=== PATIENT | male | born 1980 | race Caucasian/White ===

== ENCOUNTER 2017-10-21 09:52 | Emergency (ER) | payer OTHER ==
[2017-10-21 09:54] VITALS: BP 123/78; PULSE 88; RESP 20; TEMP 98.6
--- NOTE | 2017-10-21 10:28 | ED ---
ENT HPI - General Chief complaint: ENT Stated complaint: Ear Infection Time Seen by Provider: 10/21/17 10:10 Source: patient, RN notes reviewed Mode of arrival: ambulatory Limitations: no limitations - History of Present Illness Initial comments: This is a 36-year-old male with a history of ear infections in the past status post ear tubes as a child who states he's had pain and drainage from his left ear for the past 12 days. He states he working a lot and cannot seek attention. He denies any overt fevers chills or sweats he does complain of the above pain and discharge however. The right ear is fine he denies any rhinorrhea sore throat cough or phlegm production he does state he has required antifungal drops also in the past. MD complaint: ear pain - Related Data Previous Rx's Medication Instructions Recorded Amoxicillin/Potassium Clav 1 tab PO Q12HR #20 tab 10/21/17 [Augmentin 875-125 Tablet] Ciprofloxacin-Dexameth [Ciprodex 4 drops LEFT EAR BID 7 Days #3 ml 10/21/17 Otic Susp] Allergies Allergy/AdvReac Type Severity Reaction Status Date / Time No Known Allergies Allergy Verified 10/21/17 09:54 Review of Systems ROS Statement: Those systems with pertinent positive or pertinent negative responses have been documented in the HPI. ROS Other: All systems not noted in ROS Statement are negative. Past Medical History Past Medical History: No Reported History History of Any Multi-Drug Resistant Organisms: None Reported Past Surgical History: No Surgical Hx Reported Past Psychological History: No Psychological Hx Reported Smoking Status: Current every day smoker Past Alcohol Use History: None Reported Past Drug Use History: None Reported General Exam - General Exam Comments Initial Comments: This is a well-developed well-nourished awake alert oriented times 3 male Limitations: no limitations General appearance: alert, in no apparent distress Head exam: Present: atraumatic, normocephalic, normal inspection Eye exam: Present: normal appearance, PERRL, EOMI. Absent: scleral icterus, conjunctival injection, periorbital swelling ENT exam: Present: normal oropharynx, mucous membranes moist, other (The right TM is within normal limits. Ear canals clear the left side reveals some exudate in the canal with hyperemic tympanic membrane. No definite perforation is seen) Neck exam: Present: normal inspection, full ROM. Absent: tenderness, meningismus, lymphadenopathy Respiratory exam: Present: normal lung sounds bilaterally. Absent: respiratory distress, wheezes, rales, rhonchi, stridor Cardiovascular Exam: Present: regular rate, normal rhythm, normal heart sounds. Absent: systolic murmur, diastolic murmur, rubs, gallop, clicks Extremities exam: Present: normal inspection, full ROM, normal capillary refill. Absent: tenderness, pedal edema, joint swelling, calf tenderness Back exam: Present: full ROM Neurological exam: Present: alert, oriented X3, CN II-XII intact Psychiatric exam: Present: normal affect, normal mood Skin exam: Present: warm, dry, intact, normal color. Absent: rash Course Vital Signs 10/21/17 09:53 Temperature 98.6 F Pulse Rate 88 Respiratory 20 Rate Blood Pressure 123/78 O2 Sat by Pulse 98 Oximetry Medical Decision Making - Medical Decision Making No further workup is indicated essentially she'll be discharged on appropriate medications. The presentation is consistent with otitis media as well as externa. Disposition Clinical Impression: Otitis externa, Otitis media Disposition: HOME SELF-CARE Condition: Good Instructions: Earache (ED), Otitis Externa (ED), Otitis Media (ED) Prescriptions: Amoxicillin/Potassium Clav [Augmentin 875-125 Tablet] 1 tab PO Q12HR #20 tab Ciprofloxacin-Dexameth [Ciprodex Otic Susp] 4 drops LEFT EAR BID 7 Days #3 ml Is patient prescribed a controlled substance at d/c from ED?: No Referrals: None,Stated [Primary Care Provider] - 1-2 days
== END 2017-10-21 10:36 | disposition home or self-care (01) ==
LOC: EC 09:52
DX: H66.92 Otitis media, unspecified, left ear (principal); H60.92 Unspecified otitis externa, left ear; F17.200 Nicotine dependence, unspecified, uncomplicated; Z96.22 Myringotomy tube(s) status
CPT/HCPCS: 99282

== ENCOUNTER 2018-02-19 15:37 | Emergency (ER) | payer OTHER ==
[2018-02-19 15:45] VITALS: BP 111/65; PULSE 81; RESP 18; TEMP 98.3
--- NOTE | 2018-02-19 16:07 | ED ---
General Adult HPI - General Chief complaint: Extremity Problem,Nontraumatic Stated complaint: leg pain Time Seen by Provider: 02/19/18 15:47 Source: patient, RN notes reviewed Mode of arrival: ambulatory Limitations: no limitations - History of Present Illness Initial comments: 37-year-old male presents to the emergency department for a chief complaint of bilateral foot pain times years. Patient states the pain is worse after he works his 12 hour shifts which require him standing on his feet. 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 He denies any increase in pain recently. Patient denies any recent injuries. Patient states the pain gets better after he is off his feet. Patient states he is able to ambulate without difficulty. Patient states he would like to be put on disability since working on his feet all day causes him pain. Patient has no other complaints at this time including shortness of breath, chest pain, abdominal pain, nausea or vomiting, headache, or visual changes. - Related Data Previous Rx's Medication Instructions Recorded Amoxicillin/Potassium Clav 1 tab PO Q12HR #20 tab 10/21/17 [Augmentin 875-125 Tablet] Ciprofloxacin-Dexameth [Ciprodex 4 drops LEFT EAR BID 7 Days #3 ml 10/21/17 Otic Susp] Allergies Allergy/AdvReac Type Severity Reaction Status Date / Time No Known Allergies Allergy Verified 10/21/17 09:54 Review of Systems ROS Statement: Those systems with pertinent positive or pertinent negative responses have been documented in the HPI. ROS Other: All systems not noted in ROS Statement are negative. Past Medical History Past Medical History: No Reported History History of Any Multi-Drug Resistant Organisms: None Reported Past Surgical History: No Surgical Hx Reported Past Psychological History: No Psychological Hx Reported Smoking Status: Current every day smoker Past Alcohol Use History: None Reported Past Drug Use History: None Reported General Exam Limitations: no limitations General appearance: alert, in no apparent distress Head exam: Present: atraumatic, normocephalic, normal inspection Eye exam: Present: normal appearance, PERRL, EOMI. Absent: scleral icterus, conjunctival injection, periorbital swelling ENT exam: Present: normal exam, mucous membranes moist Neck exam: Present: normal inspection, full ROM. Absent: tenderness, meningismus, lymphadenopathy Respiratory exam: Present: normal lung sounds bilaterally. Absent: respiratory distress, wheezes, rales, rhonchi, stridor Cardiovascular Exam: Present: regular rate, normal rhythm, normal heart sounds. Absent: systolic murmur, diastolic murmur, rubs, gallop, clicks Extremities exam: Present: full ROM (Full range motion of lower external ears bilaterally including knees ankles and feet.), normal capillary refill ( Capillary refill less than 2 seconds, PT pulse 2+ in lower external ears bilaterally, feet warm bilaterally.), other (Normal Haynes test, no erythema or evidence of infection, no sores or open wounds.). Absent: tenderness (No tenderness whatsoever in the calves ankles or feet.), pedal edema, joint swelling (No edema noted to lower extremities), calf tenderness (tenderness, negative Homans sign, no erythema, edema, increased warmth noted to calves, equal in diameter bilaterally.) Neurological exam: Present: alert, oriented X3, CN II-XII intact Psychiatric exam: Present: normal affect Course Vital Signs 02/19/18 15:41 Temperature 98.3 F Pulse Rate 81 Respiratory 18 Rate Blood Pressure 111/65 O2 Sat by Pulse 95 Oximetry Medical Decision Making - Medical Decision Making 37-year-old male presents to the emergency department for a chief complaint of bilateral foot pain times years. Patient states standing all day at work causes him pain. Patient denies any recent injuries. He denies any recent increase in pain. Patient states that his feet feel better when he does not have to work. Patient states he thinks he should go on disability because his job requires him to stand for 12 hours and this is what is causing the pain. No history of diabetes. On exam neurovascular intact bilaterally. Patient has a normal gait and is able to ambulate on bilateral feet. Patient does not have any foot or ankle tenderness. Patient does not qualify for [place] ankle rules for x-ray. However I did offer patient bilateral foot x-rays. He did refuse x- ray as he does not believe this pain is anything acute. He would rather follow up outpatient for this. He does request a note for work which was given to him for the next 2 days. He will follow up with primary care and podiatry. He'll return if he has any worsening symptoms. Disposition Clinical Impression: Bilateral foot pain Disposition: HOME SELF-CARE Condition: Good Instructions: Arthralgia (ED) Additional Instructions: Please take Motrin and Tylenol for pain. Please try compression stockings. Please follow up with primary care and podiatry in 1-2 days. Please return to the emergency department if you have any worsening symptoms. Is patient prescribed a controlled substance at d/c from ED?: No Referrals: Jhony Joshi MD [REFERRING] - 1-2 days Ryan Granger DPM [STAFF PHYSICIAN] - 1-2 days Time of Disposition: 16:29
[2018-02-19] MEDS: IBUPROFEN 800 MG TAB PO STA (16:23)
== END 2018-02-19 16:32 | disposition home or self-care (01) ==
LOC: EC 15:37
DX: M79.672 Pain in left foot (principal); M79.671 Pain in right foot; F17.200 Nicotine dependence, unspecified, uncomplicated; Z53.29 Procedure and treatment not carried out because of patient's decision for other reasons
CPT/HCPCS: 99283